=== PATIENT | male | born 1980 | race Caucasian/White ===

== ENCOUNTER 2018-05-26 15:35 | Emergency (ER) | payer BC ==
[2018-05-26 16:17] VITALS: RESP 18; TEMP 98.5
[2018-05-26] MEDS ORDERED: SODIUM CHLORIDE 0.9% 1,000 ML IV ONE (16:56)
[2018-05-26 17:35] LABS: Basophils % (A) 0 %; Eosinophils # (A) 0.2 k/uL (0-0.7); Eosinophils % (A) 3 %; HCT 42.5 % (39.0-53.0); HGB 14.4 gm/dL (13.0-17.5); Lymphocytes # (A) 1.1 k/uL (1.0-4.8); Lymphocytes % (A) 17 %; MCH 30.1 pg (25.0-35.0); MCV 88.8 fL (80.0-100.0); Mean Platelet Volume 6.5; Monocytes # (A) 0.5 k/uL (0-1.0); Monocytes % (A) 8 %; Neutrophils # (A) 4.4 k/uL (1.3-7.7); Neutrophils % (A) 70 %; Platelet Count 177 k/uL (150-450); RBC 4.79 m/uL (4.30-5.90); RDW 12.1 % (11.5-15.5); WBC 6.3 k/uL (3.8-10.6)
--- NOTE | 2018-05-26 17:36 | XR ---
EXAMINATION TYPE: XR chest 2V DATE OF EXAM: 05/26/2018 COMPARISON: NONE. No prior study available in the PACS system. HISTORY: Chest pain and a rash. TECHNIQUE: Frontal and lateral views of the chest are obtained. FINDINGS: There is no focal air space opacity, pleural effusion, or pneumothorax seen. The cardiac silhouette size is within normal limits. The osseous structures are intact. Minimal pleural thicken ing at the lung apices bilaterally. IMPRESSION: Minimal pleural thickening along apices bilaterally. No acute parenchymal infiltrate or vascular dec ompensation. No pneumothorax or effusion.
[2018-05-26 17:46] LABS: ALT 28 U/L (21-72); AST 20 U/L (17-59); Albumin 4.5 g/dL (3.5-5.0); Alkaline Phosphatase 67 U/L (38-126); Anion Gap 8 mmol/L; Blood Urea Nitrogen 10 mg/dL (9-20); Calcium 9.4 mg/dL (8.4-10.2); Carbon Dioxide 27 mmol/L (22-30); Chloride 104 mmol/L (98-107); Glucose 90 mg/dL (74-99); Potassium 4.2 mmol/L (3.5-5.1); Sodium 139 mmol/L (137-145); Total Bilirubin 0.7 mg/dL (0.2-1.3); Total Protein 7.5 g/dL (6.3-8.2)
[2018-05-26 17:48] LABS: Prothrombin Time 10.2 sec (9.0-12.0)
[2018-05-26 17:49] LABS: Partial Thromboplastin Time 25.4 sec (22.0-30.0)
[2018-05-26 17:50] LABS: Creatine Kinase 59 U/L (55-170)
[2018-05-26 18:04] LABS: Creatine Kinase MB <0.2 ng/mL (0.0-2.4); Troponin I <0.012 ng/mL (0.000-0.034)
--- NOTE | 2018-05-26 18:25 | ED ---
Skin/Abscess/FB HPI - General Chief complaint: Skin/Abscess/Foreign Body Stated complaint: Rash Time Seen by Provider: 05/26/18 16:20 Source: patient, family Mode of arrival: ambulatory Limitations: no limitations - History of Present Illness Initial comments: 37-year-old male patient presents the emergency department today for evaluation of infection to the left anterior thigh. Patient states that he noticed the area starting yesterday, states when he woke today the area of redness had gotten bigger and started to streak up his thigh. Patient states he had similar areas to the right side of his face a couple of weeks ago. Patient states that his lymph nodes have been swollen. He states he had a fever 2 weeks ago but denies any fever with this current infection. Patient states also last evening he had a 15 minute episode of chest pain. States it is sharp in nature and radiating across his whole chest. Patient states he felt short of breath with this. Denies any sweats, nausea, or vomiting. Denies any dizziness or weakness. Denies any cough or congestion. Patient denies any recent rash, abdominal pain, nausea, vomiting, diarrhea, constipation, back pain , numbness, tingling, dizziness, weakness, hematuria, dysuria, urinary urgency, urinary frequency, headache, visual changes, or any other complaints. - Related Data Previous Rx's Medication Instructions Recorded Cephalexin [Keflex] 500 mg PO Q6H #40 cap 05/26/18 Allergies Allergy/AdvReac Type Severity Reaction Status Date / Time No Known Allergies Allergy Verified 05/26/18 18:01 Review of Systems ROS Statement: Those systems with pertinent positive or pertinent negative responses have been documented in the HPI. ROS Other: All systems not noted in ROS Statement are negative. Past Medical History Additional Past Medical History / Comment(s): psoriasis History of Any Multi-Drug Resistant Organisms: None Reported Additional Past Surgical History / Comment(s): left ankle, Past Psychological History: No Psychological Hx Reported Smoking Status: Never smoker Past Alcohol Use History: None Reported Past Drug Use History: None Reported General Exam Limitations: no limitations General appearance: alert, in no apparent distress, other (Social well-developed , well-nourished adult male patient in no acute distress. Vital signs upon presentation are temperature 98.5F, pulse 63, respirations 18, blood pressure 122/84, pulse ox 100% on room air.) Eye exam: Present: normal appearance, PERRL, EOMI. Absent: scleral icterus, conjunctival injection, periorbital swelling ENT exam: Present: normal exam, normal oropharynx, mucous membranes moist Respiratory exam: Present: normal lung sounds bilaterally. Absent: respiratory distress, wheezes, rales, rhonchi, stridor Cardiovascular Exam: Present: regular rate, normal rhythm, normal heart sounds. Absent: systolic murmur, diastolic murmur, rubs, gallop, clicks GI/Abdominal exam: Present: soft, normal bowel sounds. Absent: distended, tenderness, guarding, rebound, rigid Extremities exam: Present: full ROM, normal capillary refill, other (There is a circular area of erythema with central white lesion. No drainage. No evidence of drainable abscess. No swelling. There is red streaking from this area to another smaller area of erythema. There is left inguinal lymphadenopathy. No swelling to the leg. Remainder of skin is pink, warm, and dry. Cap refills less than 3 seconds. Pedal and posttibial pulses are 2+ and equal bilaterally.) . Absent: normal inspection, tenderness, pedal edema, joint swelling, calf tenderness Back exam: Present: normal inspection Neurological exam: Present: alert, oriented X3, CN II-XII intact Psychiatric exam: Present: normal affect, normal mood Skin exam: Present: warm, dry, intact, normal color. Absent: rash Course Vital Signs 05/26/18 16:13 Temperature 98.5 F Pulse Rate 63 Respiratory 18 Rate Blood Pressure 122/84 O2 Sat by Pulse 100 Oximetry Medical Decision Making - Medical Decision Making 37-year-old male patient presented to the emergency department today for evaluation of possible abscess to the left anterior thigh. Physical examination did reveal area of cellulitis with streaking up the leg to another area of cellulitis. Patient is afebrile, vital signs are stable. Labs reviewed and are unremarkable. Patient will be discharged home with a prescription for Keflex. He also had episode of chest pain last evening. EKG reviewed from x-ray showed normal sinus rhythm with no ST changes. Chest x-ray showed pleural thickening at the lung apices, I did inform patient of this finding. Troponin is negative. Cardiac profile is negative. He'll be instructed to follow-up with his primary care physician for recheck in 1-2 days. Return parameters discussed in detail. He verbalizes understanding and agrees this plan. - Lab Data Result diagrams: 05/26/18 17:22 05/26/18 17:22 Lab Results 05/26/18 05/26/18 05/26/18 Range/Units 17:22 17:22 17:22 WBC 6.3 (3.8-10.6) k/uL RBC 4.79 (4.30-5.90) m/uL Hgb 14.4 (13.0-17.5) gm/dL Hct 42.5 (39.0-53.0) % MCV 88.8 (80.0-100.0) fL MCH 30.1 (25.0-35.0) pg MCHC 34.0 (31.0-37.0) g/dL RDW 12.1 (11.5-15.5) % Plt Count 177 (150-450) k/uL Neutrophils % 70 % Lymphocytes % 17 % Monocytes % 8 % Eosinophils % 3 % Basophils % 0 % Neutrophils # 4.4 (1.3-7.7) k/uL Lymphocytes # 1.1 (1.0-4.8) k/uL Monocytes # 0.5 (0-1.0) k/uL Eosinophils # 0.2 (0-0.7) k/uL Basophils # 0.0 (0-0.2) k/uL PT (9.0-12.0) sec INR (<1.2) APTT (22.0-30.0) sec Sodium 139 (137-145) mmol/L Potassium 4.2 (3.5-5.1) mmol/L Chloride 104 (98-107) mmol/L Carbon Dioxide 27 (22-30) mmol/L Anion Gap 8 mmol/L BUN 10 (9-20) mg/dL Creatinine 0.90 (0.66-1.25) mg/dL Est GFR (CKD-EPI)AfAm >90 (>60 ml/min/1.73 sqM) Est GFR (CKD-EPI)NonAf >90 (>60 ml/min/1.73 sqM) Glucose 90 (74-99) mg/dL Calcium 9.4 (8.4-10.2) mg/dL Total Bilirubin 0.7 (0.2-1.3) mg/dL AST 20 (17-59) U/L ALT 28 (21-72) U/L Alkaline Phosphatase 67 (38-126) U/L Total Creatine Kinase 59 (55-170) U/L CK-MB (CK-2) <0.2 (0.0-2.4) ng/mL CK-MB (CK-2) Rel Index Troponin I <0.012 (0.000-0.034) ng/mL Total Protein 7.5 (6.3-8.2) g/dL Albumin 4.5 (3.5-5.0) g/dL 05/26/18 Range/Units 17:22 WBC (3.8-10.6) k/uL RBC (4.30-5.90) m/uL Hgb (13.0-17.5) gm/dL Hct (39.0-53.0) % MCV (80.0-100.0) fL MCH (25.0-35.0) pg MCHC (31.0-37.0) g/dL RDW (11.5-15.5) % Plt Count (150-450) k/uL Neutrophils % % Lymphocytes % % Monocytes % % Eosinophils % % Basophils % % Neutrophils # (1.3-7.7) k/uL Lymphocytes # (1.0-4.8) k/uL Monocytes # (0-1.0) k/uL Eosinophils # (0-0.7) k/uL Basophils # (0-0.2) k/uL PT 10.2 (9.0-12.0) sec INR 1.0 (<1.2) APTT 25.4 (22.0-30.0) sec Sodium (137-145) mmol/L Potassium (3.5-5.1) mmol/L Chloride (98-107) mmol/L Carbon Dioxide (22-30) mmol/L Anion Gap mmol/L BUN (9-20) mg/dL Creatinine (0.66-1.25) mg/dL Est GFR (CKD-EPI)AfAm (>60 ml/min/1.73 sqM) Est GFR (CKD-EPI)NonAf (>60 ml/min/1.73 sqM) Glucose (74-99) mg/dL Calcium (8.4-10.2) mg/dL Total Bilirubin (0.2-1.3) mg/dL AST (17-59) U/L ALT (21-72) U/L Alkaline Phosphatase (38-126) U/L Total Creatine Kinase (55-170) U/L CK-MB (CK-2) (0.0-2.4) ng/mL CK-MB (CK-2) Rel Index Troponin I (0.000-0.034) ng/mL Total Protein (6.3-8.2) g/dL Albumin (3.5-5.0) g/dL - Radiology Data Radiology results: report reviewed, image reviewed Two-view x-ray of the chest is obtained. There is no focal airspace opacity, pleural effusion, or pneumothorax seen. The cardiac silhouette size is within normal limits. The osseous structures are intact. Minimal pleural thickening at the lung apices bilaterally. Impression by Dr. Kena dick shows minimal pleural thickening lung apices bilaterally. No acute parenchymal infiltrate or vascular decompensation. No pneumothorax or effusion. Disposition Clinical Impression: Lymphadenitis, Cellulitis of left thigh, Pleural thickening Disposition: HOME SELF-CARE Condition: Good Instructions: Cellulitis (ED), Lymphadenopathy (ED) Additional Instructions: Complete antibiotic prescription in full. Increase fluids. Follow-up with your primary care physician for recheck in 1-2 days. Return here immediately for any new, worsening, or concerning symptoms. Prescriptions: Cephalexin [Keflex] 500 mg PO Q6H #40 cap Is patient prescribed a controlled substance at d/c from ED?: No Referrals: Rahat Hurtado MD [REFERRING] - 1-2 days Time of Disposition: 18:24
[2018-05-26] MEDS: CEPHALEXIN 500MG STARTER PACK 4 CAP BTL PO STA ×2 (18:32→18:37)
[2018-05-26] MEDS ORDERED: CEPHALEXIN 500MG STARTER PACK 4 CAP BTL PO STA (18:34)
[2018-05-26 18:46] VITALS: BP 112/66; PULSE 80
== END 2018-05-26 18:46 | disposition home or self-care (01) ==
LOC: EC 15:35
DX: I88.9 Nonspecific lymphadenitis, unspecified (principal); L03.116 Cellulitis of left lower limb; J92.9 Pleural plaque without asbestos; Z87.2 Personal history of diseases of the skin and subcutaneous tissue
CPT/HCPCS: 36415; 71046; 80053; 82550; 82553; 84484; 85025; 85610; 85730; 87040; 99283